=== PATIENT | female | born 1955 ===

== ENCOUNTER 2018-10-26 14:05 | Inpatient (IN) | payer OTHER ==
[~2018-10-26] VITALS: Ht 170.2 cm; Wt 102.5 kg
[~2018-10-26 14:05] MED LIST: BISOPROLOL-HCT1 EACH PO; LEVOXYL88 MCG PO
[2018-10-31] MEDS ORDERED: HYOSCYAMINE0.125 M1 SL (10:30)
[2018-10-31] MEDS ORDERED: OXYC1TAB9 PO (10:30)
== END 2018-10-31 11:50 | disposition home or self-care (01) | DRG 331 ==
LOC: O/R 10-28 07:45 → SURH 10-28 07:45 → RECOVERY 10-28 09:00 → SURH 10-28 13:56
PROVIDERS: ADMIT Surgery
PROC: 07TB4ZZ Resection of Mesenteric Lymphatic, Percutaneous Endoscopic Approach (ICD-10-PCS; 2018-10-28)
PROC: 0WBH4ZZ Excision of Retroperitoneum, Percutaneous Endoscopic Approach (ICD-10-PCS; 2018-10-28)
PROC: 0DJD8ZZ Inspection of Lower Intestinal Tract, Via Natural or Artificial Opening Endoscopic (ICD-10-PCS; 2018-10-28)
PROC: 0DTN4ZZ Resection of Sigmoid Colon, Percutaneous Endoscopic Approach (ICD-10-PCS; principal; 2018-10-28 09:00)
DX: C19 Malignant neoplasm of rectosigmoid junction (principal); E03.8 Other specified hypothyroidism; I11.9 Hypertensive heart disease without heart failure; E66.09 Other obesity due to excess calories; I73.89 Other specified peripheral vascular diseases; D36.7 Benign neoplasm of other specified sites; D12.5 Benign neoplasm of sigmoid colon; R59.0 Localized enlarged lymph nodes

== ENCOUNTER → 2019-11-04 08:00 | Outpatient (CLI) | payer OTHER ==
[~2019-11-04 08:00] MED LIST changes: +HYOSCYAMINE0.125 M1 SL; +OXYC1TAB9 PO
== END | disposition home or self-care (01) ==
LOC: LAB 08:00 → ADM 13:30 → AMB-ENDOS 11-11 11:25 → EDSTATUS 11-11 13:30 → AMB-ENDOS 11-11 13:30
PROVIDERS: ATTEND Surgery
DX: Z85.038 Personal history of other malignant neoplasm of large intestine (principal); Z20.828 Contact with and (suspected) exposure to other viral communicable diseases

== ENCOUNTER 2019-12-22 10:56 | Day surgery (SDC) | payer OTHER | END 2019-12-22 14:40 | disposition home or self-care (01) | LOC: AMB-ENDOS 10:56 | PROVIDERS: ATTEND Surgery | DX: K62.89 Other specified diseases of anus and rectum (principal); Z20.828 Contact with and (suspected) exposure to other viral communicable diseases ==